=== PATIENT | female | born 1950 | race Caucasian/White ===

== ENCOUNTER → 2017-05-29 | Day surgery (SDC) | payer OTHER ==
--- NOTE | 2017-05-28 12:39 | MH ---
cc: IRENE TURENR M.D. 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 She is not able to tolerate removal under local. The gag reflex will undergo excision of the uvular lesion under general anesthesia. PAST MEDICAL HISTORY ALLERGIES CELEBREX HEPARIN UNSPECIFIED. PHYSICAL EXAMINATION IN GENERAL: Well-developed, Well nourished female in no apparent distress. HEAD, EYES, EARS, NOSE, AND THROAT: Normocephalic, atraumatic, extraocular motion is intact Son atraumatic. Extraocular motions intact. External ear canal is clear, The nasal exam shows no lesion. Lips, mucosa and pharynx show the lesion as described above a rounded mass at the base of the uvula on the right side most consistent with a papilloma. CHEST: The chest is clear to auscultation. HEART: Regular rate. ABDOMEN: The abdomen is soft. EXTREMITIES: No lesions. NEUROLOGIC: Exam nonfocal. 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 PLAN: Plan is for excision and the OR under anesthesia for biopsy and removal, The risks, benefits and alternatives discussed with the patient. The risks include not limited to those of anesthesia, bleeding, unfavorable scarring, velopharyngeal insufficiency, dehydration, depression, abscess, voice change, and bleeding. The patient states she understands and accepts risks of this procedure. MD LISETTE Gaspar/michelle /12:02 PM /12:23 PM
[~2017-05-29] VITALS: Ht 154.9 cm; Wt 87.1 kg
[~2017-05-29] MED LIST: *RESP: ALBUTEROL 2.5 MG/3 ML NEB (PRN) PERIprocedural Use ONLY NEB ONE; ACETAMINOPHEN/HYDROcodone 325 MG/5 MG TAB PO PRN; ASPI81TA5 PO; CHLORHEXIDINE GLUCONATE 2 % 1 PACK (2 CLOTHS) TOPICAL PRN; COZA50TA PO; DO NOT ADM ANY ANTICOAGULANT DRUGS PRN; ESCI10TA PO; HYDR500C PO; INSULIN HUMAN REGULAR 1,000 UNITS/10 ML VIAL SQ PRN; LACTATED RINGER'S 1000 ML IV PRN; LEVO75TA3 PO; LIDOCAINE 1%/EPINEPHrine 1:100,000 SOLN 20 ML VIAL INFIL ONE; LIPI40TA PO; LORA-373 PO; METOPROLOL TARTRATE 25 MG TAB PO PRN; MORPHINE SULFATE 4 MG/ML INJ IV PRN; ONDANSETRON HCL 4 MG/2 ML VIAL IV PUSH PRN; POVIDONE IODINE 5% (ANTISEPSIS KIT) 4 APPLICATIONS EACH NARE PRN; PROPOFOL 200 MG/20 ML AMP IV ONE; SIMV20TA PO; SODIUM CHLORID 0.9% 500 ML IV PRN
--- NOTE | 2017-05-29 08:59 | MP ---
cc: IRENE TURNER M.D. DATE OF SURGERY: 05/29/2017 1950 INDICATIONS 67-year-old female with a lesion of the uvula at the base. She is to undergo excision of what appears to be a papilloma. PREOPERATIVE DIAGNOSIS Uvular lesion. POSTOPERATIVE DIAGNOSIS Uvular lesion. PROCEDURE Excision of uvular lesion with closure. SUMMARY The patient was brought to the operating room and placed in the supine position, successfully placed under general anesthesia, prepped in the usual fashion for this procedure. The oral cavity was exposed with retractor, the lesion was identified. Local anesthesia was applied. The area was incised. Hemostasis was obtained, a chromic suture was placed. The specimen was sent to pathology. She was suctioned. She was awakened, extubated, and taken to recovery in stable condition. MD LISETTE Gaspar/PRECIOUS /8:26 AM /8:35 AM
[2017-05-29 10:48] LABS: AUTOMATED NEUTROPHIL # 5.1 TH/MM3 (1.8-7.7); BASOPHIL % 0.2 % (0.0-2.0); EOSINOPHIL # 0.3 TH/MM3 (0-0.4); EOSINOPHIL % 4.2 % (0.0-4.0); HEMATOCRIT 37.4 % (35.0-46.0); HEMO FLAGS DIFF FINAL; LYMPHOCYTE # 1.4 TH/MM3 (1.0-4.8); MEAN CELL VOLUME 96.6 FL (80.0-100.0); MEAN CORPUSCULAR HEMOGLOBIN 30.9 PG (27.0-34.0); MONO % 7.8 % (0.0-8.0); NEUT % 68.8 % (16.0-70.0); PLATELET COUNT 484 TH/MM3 (150-450); RED BLOOD COUNT 3.87 MIL/MM3 (4.00-5.30); RED CELL DISTRIBUTION WIDTH 14.3 % (11.6-17.2); WHITE BLOOD COUNT 7.3 TH/MM3 (4.0-11.0)
[2017-05-29 14:00] VITALS: BP 131/69; PULSE 77; RESP 16; TEMP 97.5; O2SAT 95
== END | disposition home or self-care (01) ==
LOC: HSDC 09:18
PROVIDERS: ATTEND Specialist
DX: D10.39 Benign neoplasm of other parts of mouth (principal); Z01.818 Encounter for other preprocedural examination
CPT/HCPCS: 00170; 42106; 85025; 88305; 94664; J3010; J7120; J7613